=== PATIENT | female | born 1955 | race Caucasian/White ===

== ENCOUNTER 2021-11-29 11:13 | Outpatient (CLI) | payer MEDICARE, MEDICAID, SELFPAY ==
[2021-11-29 12:45] LABS: Vitamin D,25 Hydroxy 17.6 ng/mL
== END 2021-11-29 23:59 | disposition home or self-care (01) ==
PROVIDERS: PCP Family Medicine; Referring Provider Nurse Practitioner Family; Visit Provider Nurse Practitioner Family
DX: M81.0 Age-related osteoporosis without current pathological fracture (principal)
CPT/HCPCS: 36415; 82306

== ENCOUNTER 2021-12-18 14:03 | Outpatient (CLI) | payer MEDICARE, MEDICAID, SELFPAY ==
[2021-12-18] MEDS: Zoledronic Acid 5 MG 100 ML 300 MG IV (14:20)
[2021-12-18] MEDS: 0.9% NaCl Peripheral Flush Adult/Peds IV (14:20)
[2021-12-18 14:22] VITALS: BP 131/51; PULSE 78; RESP 16; TEMP 36.2; O2SAT 98
== END 2021-12-18 23:59 | disposition home or self-care (01) ==
LOC: MEDOUTP 14:06
PROVIDERS: PCP Family Medicine; Referring Provider Internal Medicine Endocrinology, Diabetes & Metabolism; Visit Provider Internal Medicine Endocrinology, Diabetes & Metabolism
DX: M81.0 Age-related osteoporosis without current pathological fracture (principal)
CPT/HCPCS: 96365; A4216; J3489